=== PATIENT | male | born 1995 | race Caucasian/White ===

== ENCOUNTER 2016-07-25 01:11 | Emergency (ER) | payer OTHER ==
[2016-07-25 01:20] VITALS: O2SAT 95
--- NOTE | 2016-07-25 02:11 | EDPHY ---
H & P Stated Complaint: "My insulin pump stopped working" 2.5 hours ago Time Seen by Provider: 07/25/16 01:40 HPI/ROS: HPI The patient presents with concern that his insulin pump is not working. He got an error message on the pump stating motor malfunction. He called [facility] and they told him that he could get a new pump in 2 days. He was unable to reach his circulation manager in [place], so comes to the emergency room for further care. He checked his glucose level about 2 hours ago and it was 219. He is not having any nausea, vomiting, abdominal pain. He was last on injectable insulin several years ago and took Humalog as well as Lantus, he can recall his doses, though has gained 15-19 lb since then he thinks. REVIEW OF SYSTEMS Constitutional: No fever, no chills. Eyes: No discharge. ENT: No sore throat. Cardiovascular: No chest pain, no palpitations. Respiratory: No cough, no shortness of breath. Gastrointestinal: No abdominal pain, no vomiting. Genitourinary: No hematuria. Musculoskeletal: No back pain. Skin: No rashes. Neurological: No headache. PMHx: Type 1 diabetes Soc Hx: College student PHYSICAL General Appearance: Alert, no distress Eyes: Pupils equal and round no pallor or injection ENT, Mouth: Mucous membranes moist Respiratory: There are no retractions, lungs are clear to auscultation Cardiovascular: Regular rate and rhythm Gastrointestinal: Abdomen is soft and non-tender, no masses, bowel sounds normal Neurological: A&O, moves all extremities Skin: Warm and dry, no rashes Musculoskeletal: Neck is supple non tender Extremities: symmetrical, full range of motion Psychiatric: Patient is oriented X 3, there is no agitation Source: Patient Exam Limitations: No limitations - Personal History Current Tetanus Diphtheria and Acellular Pertussis (TDAP): Yes - Medical/Surgical History Hx Asthma: No Hx Chronic Respiratory Disease: No Hx Diabetes: Yes Hx Cardiac Disease: No Hx Renal Disease: No Hx Cirrhosis: No Hx Alcoholism: No Hx HIV/AIDS: No Hx Splenectomy or Spleen Trauma: No Other PMH: DM I since 10 yo, depression - Social History Smoking Status: Never smoked Constitutional: Initial Vital Signs Temperature (C) 36.8 C 07/25/16 01:19 Heart Rate 92 07/25/16 01:19 Respiratory Rate 16 07/25/16 01:19 Blood Pressure 134/66 H 07/25/16 01:19 O2 Sat (%) 95 07/25/16 01:19 O2 Delivery Mode Room Air Allergies/Adverse Reactions: No Known Allergies Allergy (Unverified 07/25/16 01:18) Home Medications: Medication Instructions Recorded Insulin Glargine,Hum.rec.anlog 100 unit SQ HS #1 ml 07/25/16 [Lantus Solostar] Insulin Lispro [Humalog Kwikpen] 200 unit SQ TID #1 insuln.pen 07/25/16 Insulin Pump Cartridge 07/25/16 Wellbutrin 100mg (*) 07/25/16 Medical Decision Making Differential Diagnosis: This is a 21-year-old male with history of type 1 diabetes who normally uses an insulin pump, who presents with pump malfunction. Glucose checked here and was 210. I have given him his nighttime Lantus dose of 12 units. I will give him prescriptions for Humalog and Lantus pens. In the morning, he will call his circulation manager to go over recommended dosing. He will be discharged from the emergency room. - Data Points Medications Given: Discontinued Medications Insulin Glargine (Lantus Syringe) 12 units SC EDNOW ONE Stop: 07/25/16 02:31 Last Admin: 07/25/16 02:50 Dose: 12 units Departure - Departure Disposition: Home, Routine, Self-Care Clinical Impression: Complication of insulin pump, Hyperglycemia Condition: Good Instructions: Diabetic Hyperglycemia (ED), Insulin Glargine (By injection), Insulin Lispro (By injection) Referrals: NONE *PRIMARY CARE P,. [Primary Care Provider] - As per Instructions Prescriptions: Insulin Lispro [Humalog Kwikpen] 200 unit SQ TID #1 insuln.pen Insulin Glargine,Hum.rec.anlog [Lantus Solostar] 100 unit SQ HS #1 ml
[2016-07-25] MEDS ORDERED: INSULIN GLARGINE 100 UNITS/ML SYRINGE SC ONE (02:30)
[2016-07-25 02:53] VITALS: BP 125/76; PULSE 95; RESP 17; TEMP 98.1
== END 2016-07-25 02:52 | disposition home or self-care (01) ==
DX: T85.614A Breakdown (mechanical) of insulin pump, initial encounter (principal); E10.65 Type 1 diabetes mellitus with hyperglycemia; Y82.8 Other medical devices associated with adverse incidents
CPT/HCPCS: 82947-QW; J1815

== ENCOUNTER 2016-10-18 18:02 | Emergency (ER) | payer OTHER ==
[2016-10-18 18:12] VITALS: BP 111/73; PULSE 90; RESP 16; TEMP 98.1; O2SAT 95
--- NOTE | 2016-10-18 19:03 | UCPHY ---
H & P Patient Type: Established Chief Complaint Nursing Narrative: Pt. states intense pain anal area since this am. states pain with sitting and walking. Denies fever/chills Time Seen by Provider: 10/18/16 18:41 HPI/ROS: Chief complaint: Rectal pain HPI: 21-year-old male presenting with increasing rectal pain today. Patient states that hurts to sit on to walk. When showering this morning he did notice a bump in his rectal area. No fevers or chills. Has had occasional blood on his stools and some pain with passing a bowel movement. No abdominal pain. Does have a history of type 1 diabetes on insulin pump. No fevers or chills. ROS: 10 point Review of Systems is negative except as noted in the HPI. Past medical history: Type 1 diabetes Medications: Humalog insulin Allergies no known drug allergies Physical exam: Gen: Awake, Alert, No Distress HEENT: Nose: no rhinorrhea Eyes: PERRLA, EOMI Mouth: Moist mucosa Abd: Soft, non-tender, no guarding Rectal: He has a palpable hemorrhoid on examination. There are no large perirectal fluid collections or masses suggestive of abscess. There is no fluctuance. Ext: no edema, non-tender Skin: no rash Neuro: CN II-XII intact, Sensation grossly intact, Strength 5/5 in bilateral upper and lower extremities - Medical/Surgical History Hx Asthma: No Hx Chronic Respiratory Disease: No Hx Diabetes: Yes Hx Cardiac Disease: No Hx Renal Disease: No Hx Cirrhosis: No Hx Alcoholism: No Hx HIV/AIDS: No Hx Splenectomy or Spleen Trauma: No Other PMH: DM I since 10 yo, depression. Surg-none - Family History Significant Family History: No pertinent family hx - Social History Smoking Status: Never smoked Constitutional: Initial Vital Signs Temperature (C) 36.7 C 10/18/16 18:07 Heart Rate 90 10/18/16 18:07 Respiratory Rate 16 10/18/16 18:07 Blood Pressure 111/73 10/18/16 18:07 O2 Sat (%) 95 10/18/16 18:07 O2 Delivery Mode Room Air Allergies/Adverse Reactions: No Known Allergies Allergy (Verified 10/18/16 18:06) Home Medications: Medication Instructions Recorded Insulin Glargine,Hum.rec.anlog 100 unit SQ HS #1 ml 07/25/16 [Lantus Solostar] Insulin Lispro [Humalog Kwikpen] 200 unit SQ TID #1 insuln.pen 07/25/16 Insulin Pump Cartridge 07/25/16 Wellbutrin 100mg (*) 07/25/16 Departure - Departure Disposition: Home, Routine, Self-Care Clinical Impression: Hemorrhoid Condition: Good Instructions: Hemorrhoids (ED) Additional Instructions: He may take [id number] hemorrhoid medication per package instructions. Make sure to drink plenty of water and stay well-hydrated. Soaks in warm water daily will help them to heal. Follow up your primary doctor in [facility] in 4-5 days if symptoms are not improving. Referrals: NONE *PRIMARY CARE P,. [Primary Care Provider] - As per Instructions [facility] [Outside] - As per Instructions - PQRS PQRS Measurement: NA
== END 2016-10-18 19:09 | disposition home or self-care (01) ==
LOC: CED 18:02
DX: K64.9 Unspecified hemorrhoids (principal); E10.9 Type 1 diabetes mellitus without complications
CPT/HCPCS: 99214-PO; G0463-PO

== ENCOUNTER 2017-02-06 13:23 | Emergency (ER) | payer OTHER ==
--- NOTE | 2017-02-06 13:35 | EDPHY ---
H & P Stated Complaint: R flank pain episodes x 10 hours, diabetic ins pump, denies dysuria Time Seen by Provider: 02/06/17 13:34 - Personal History Current Tetanus/Diphtheria Vaccine: Unsure Current Tetanus Diphtheria and Acellular Pertussis (TDAP): Unsure - Medical/Surgical History Hx Asthma: No Hx Chronic Respiratory Disease: No Hx Diabetes: Yes Hx Cardiac Disease: No Hx Renal Disease: No Hx Cirrhosis: No Hx Alcoholism: No Hx HIV/AIDS: No Hx Splenectomy or Spleen Trauma: No Other PMH: DM I since age 10y, depression - Social History Smoking Status: Never smoked Constitutional: Initial Vital Signs Temperature (C) 36.6 C 02/06/17 13:26 Heart Rate 91 02/06/17 13:26 Respiratory Rate 16 02/06/17 13:26 Blood Pressure 104/77 02/06/17 13:26 O2 Sat (%) 98 02/06/17 13:26 O2 Delivery Mode Room Air Allergies/Adverse Reactions: No Known Allergies Allergy (Verified 10/18/16 18:06) Home Medications: Medication Instructions Recorded Insulin Glargine,Hum.rec.anlog 100 unit SQ HS #1 ml 07/25/16 [Lantus Solostar] Insulin Lispro [Humalog Kwikpen] 200 unit SQ TID #1 insuln.pen 07/25/16 Insulin Pump Cartridge 07/25/16 Wellbutrin 100mg (*) 07/25/16 Medical Decision Making - Diagnostics Imaging Results: Imaging Impressions Abdomen/Pelvis Ultrasound 02/06/17 13:44 Impression: 1. Normal kidneys without hydronephrosis. 2. No mass. 3. Patient was not able to void for the study today. Findings discussed with Dominic Soriano MD at 1500 hours, 02/06/2017. Final report concurs with initial preliminary interpretation. Abdomen/Pelvis CT 02/06/17 14:50 Impression: 1. No nephrolithiasis or hydronephrosis. 2. Mild constipation. 3. Appendicular microlithiasis without evidence of appendicitis or inflammation. Attention: This CT examination is specifically designed to evaluate patients who are clinically suspected of having acute obstructive uropathy. This examination does not use radiographic contrast, and as such, provides only a limited evaluation of the abdomen, pelvis and retroperitoneum. If there is further clinical suspicion for pathological conditions other than obstructive uropathy, a complete CT evaluation of the abdomen and pelvis utilizing intravenous, oral, and rectal contrast should be considered. Findings discussed with Emergency Department physician, Dominic Soriano MD, at 1545 hours, 02/06/2017. Final report concurs with initial preliminary interpretation. Imaging: Discussed imaging studies w/ bingo caller Radiologist, I viewed and interpreted images myself ED Course/Re-evaluation: CHIEF COMPLAINT: Right lower back pain. HISTORY OF PRESENT ILLNESS: The patient is a 21 y/o male with a history of diabetes who complains of waxing and waning right lower flank pain for the past 10 hours. He states the pain is radiating towards his lower right abdomen and groin. Denies history of kidney stone, fluctuating sugars. Denies fever, vomiting, dyspnea, dysuria, testicular pain. REVIEW OF SYSTEMS: A 10 point review of systems was performed and is negative with the exception of the elements mentioned in the history of present illness. PHYSICAL EXAM: HR, BP, O2 Sat, RR. Temp noted General Appearance: Alert, well hydrated, appropriate, and non-toxic appearing. Head: Atraumatic without scalp tenderness or obvious injury Eyes: Pupils equal, round, reactive to light and accommodation, EOMI, no trauma , no injection. Nose: Atraumatic, no rhinorrhea, clear. Throat: Mucus membranes moist. Neck: Supple. Respiratory: No retractions, no distress, no wheezes, and no accessory muscle use. Lungs are clear to auscultation bilaterally. Cardiovascular: Regular rate and rhythm, no murmurs, rubs, or gallops. Good capillary refill all extremities. Gastrointestinal: Abdomen is soft, nontender, non-distended, no masses, no rebound, no guarding, no peritoneal signs. Musculoskeletal: Right CVA tenderness. Normal active ROM of all extremities, atraumatic. Neurological: Alert, appropriate, and interactive. Non-focal neuro. Skin: No rashes, good turgor, no nodules on palpation. Past medical history: Type I diabetes since 10 Past surgical history: Denies Family history: No family history of kidney stones. Social history: Lives in [facility] student DIAGNOSTICS/PROCEDURES/CRITICAL CARE TIME: Kidney US: Negative Abdominal/Pelvis CT: No evidence of kidney stone, appendicolith present. DIFFERENTIAL DIAGNOSIS: The differential diagnosis for the patient's abdominal pain included but was not limited to kidney stone, appendicitis, cholecystitis, hernias, testicular torsion, gastritis, and urinary tract infection. MEDICAL DECISION MAKING: The patient is a 21 y/o male with a history of diabetes who presents with a 10 hour history of waxing and waning right CVA tenderness. His abdomen is benign and he is afebrile. His presentation is consistent with a kidney stone. Plan for kidney US, IV, labs, and symptomatic management. 30mg IV Ketorolac, 1mg IV Dilaudid, 4mg IV Zofran, and 1L NS administered. BGL is normal, which decreases my suspicion for infectious process. Informal US read is negative, plan for abdominal CT to evaluate for kidney stone. 1545: Spoke with Dr. Lu, radiologist, no hydroureter, hydronephrosis, there are numerous micro appendicolith. Labs pending. 1714: Patient has been unable to provide a urine sample, although his CT shows a distended bladder. Bladder scan shows almost 600cc of urine. Patient has been straining to urinate for over 20 minutes without producing a sample. 1944: Reassessed patient. I recommend placing a catheter to empty out his bladder. He is comfortable with this plan. 2014: He has voided 400cc without a catheter, he will be discharged home with referral to surgeon for appendicolith and urologist for urinary retention. Return precautions provided, he is comfortable with this plan. - Data Points Laboratory Results: Laboratory Results 02/06/17 14:11 02/06/17 14:11 02/06/17 02/06/17 02/06/17 19:20 14:11 14:11 WBC 8.91 10^3/uL 10^3/uL (3.80-9.50) RBC 5.62 10^6/uL 10^6/uL (4.40-6.38) Hgb 17.1 g/dL g/dL (13.7-17.5) Hct 48.1 % % (40.0-51.0) MCV 85.6 fL fL (81.5-99.8) MCH 30.4 pg pg (27.9-34.1) MCHC 35.6 g/dL g/dL (32.4-36.7) RDW 12.6 % % (11.5-15.2) Plt Count 335 10^3/uL 10^3/uL (150-400) MPV 9.9 fL fL (8.7-11.7) Neut % (Auto) 51.6 % % (39.3-74.2) Lymph % (Auto) 33.0 % % (15.0-45.0) [place] % (Auto) 8.3 % % (4.5-13.0) Eos % (Auto) 6.1 % % (0.6-7.6) Baso % (Auto) 0.8 % % (0.3-1.7) Nucleat RBC Rel Count 0.0 % % (0.0-0.2) Absolute Neuts (auto) 4.60 10^3/uL 10^3/uL (1.70-6.50) Absolute Lymphs (auto) 2.94 10^3/uL 10^3/uL (1.00-3.00) Absolute Monos (auto) 0.74 10^3/uL 10^3/uL (0.30-0.80) Absolute Eos (auto) 0.54 10^3/uL H 10^3/uL (0.03-0.40) Absolute Basos (auto) 0.07 10^3/uL 10^3/uL (0.02-0.10) Absolute Nucleated RBC 0.00 10^3/uL 10^3/uL (0-0.01) Immature Gran % 0.2 % % (0.0-1.1) Immature Gran # 0.02 10^3/uL 10^3/uL (0.00-0.10) Sodium 139 mEq/L mEq/L (134-144) Potassium 4.6 mEq/L mEq/L (3.5-5.2) Chloride 101 mEq/L mEq/L (97-110) Carbon Dioxide 22 mEq/l mEq/l (22-31) Anion Gap 16 mEq/L mEq/L (8-16) BUN 14 mg/dL mg/dL (7-23) Creatinine 0.9 mg/dL mg/dL (0.7-1.3) Estimated GFR > 60 Glucose 123 mg/dL H mg/dL (70-100) Calcium 10.2 mg/dL mg/dL (8.5-10.4) Total Bilirubin 0.9 mg/dL mg/dL (0.1-1.4) AST 28 IU/L IU/L (17-59) ALT 30 IU/L IU/L (21-72) Alkaline Phosphatase 85 IU/L IU/L (38-126) Total Protein 8.3 g/dL H g/dL (6.3-8.2) Albumin 5.3 g/dL H g/dL (3.5-5.0) Urine Color YELLOW Urine Appearance CLEAR Urine pH 6.0 (5.0-7.5) Ur Specific [place] 1.013 (1.002-1.030) Urine Protein NEGATIVE (NEGATIVE) Urine Ketones NEGATIVE (NEGATIVE) Urine Blood NEGATIVE (NEGATIVE) Urine Nitrate NEGATIVE (NEGATIVE) Urine Bilirubin NEGATIVE (NEGATIVE) Urine Urobilinogen NEGATIVE EU EU (0.2-1.0) Ur Leukocyte Esterase NEGATIVE (NEGATIVE) Urine RBC 1-3 /hpf /hpf (0-3) Urine WBC 1-3 /hpf /hpf (0-3) Ur Epithelial Cells NONE SEEN /lpf /lpf (NONE-1+) Urine Mucus 2+ /lpf H /lpf (NONE-1+) Urine Glucose NEGATIVE (NEGATIVE) Medications Given: Discontinued Medications Hydromorphone HCl (Dilaudid) 1 mg IVP EDNOW ONE Stop: 02/06/17 13:44 Last Admin: 02/06/17 14:04 Dose: 1 mg Sodium Chloride (Ns) 1,000 mls @ 0 mls/hr IV EDNOW ONE; Wide Open PRN Reason: Protocol Stop: 02/06/17 13:44 Last Admin: 02/06/17 14:03 Dose: 1,000 mls Ketorolac Tromethamine (Toradol) 30 mg IVP EDNOW ONE Stop: 02/06/17 13:44 Last Admin: 02/06/17 14:03 Dose: 30 mg Ondansetron HCl (Zofran) 4 mg IVP EDNOW ONE Stop: 02/06/17 13:44 Last Admin: 02/06/17 14:04 Dose: 4 mg Departure - Departure Disposition: Home, Routine, Self-Care Clinical Impression: Urinary retention, Acute right flank pain Condition: Good Instructions: Urinary Retention in Men (ED), Flank Pain (ED) Additional Instructions: 1. Follow up with Dr. Llanos, urologist, for urinary retention. 2. Follow up with Dr. Rodgers, surgeon, regarding appendicolithiases on your abdominal CT. 3. Return to the ED for severe abdominal pain, vomiting, fever, inability to void bladder, or other worsening of condition. Referrals: HERMANN ALMARAZ [Other] - As per Instructions Jimmie Rodgers MD [Medical Doctor] - As per Instructions Hansa Llanos MD [Medical Doctor] - As per Instructions Report Scribed for: Dominic Soriano Report Scribed by: Magda Graves Date of Report: 02/06/17 Time of Report: 13:35
[2017-02-06] MEDS ORDERED: NS 1,000 ML IV ONE (13:43)
[2017-02-06] MEDS ORDERED: ONDANSETRON 4 MG/2 ML VIAL IVP ONE (13:43)
[2017-02-06] MEDS ORDERED: HYDROmorphONE/DILAUDID 1 MG/ML SYR IVP ONE (13:43)
[2017-02-06] MEDS ORDERED: KETOROLAC 30 MG/1 ML SDV IVP ONE (13:43)
[2017-02-06 14:35] LABS: ALANINE AMINOTRANSFERASE 30 IU/L (21-72); ALBUMIN 5.3 g/dL (3.5-5.0); ALKALINE PHOSPHATASE 85 IU/L (38-126); ANION GAP 16 mEq/L (8-16); ASPARTATE AMINOTRANSFERASE 28 IU/L (17-59); BILIRUBIN,TOTAL 0.9 mg/dL (0.1-1.4); CALCIUM 10.2 mg/dL (8.5-10.4); CARBON DIOXIDE 22 mEq/l (22-31); CHLORIDE 101 mEq/L (97-110); CREATININE 0.9 mg/dL (0.7-1.3); GLOMERULAR FILTRATION RATE > 60; GLUCOSE 123 mg/dL (70-100); POTASSIUM 4.6 mEq/L (3.5-5.2); SODIUM 139 mEq/L (134-144); TOTAL PROTEIN 8.3 g/dL (6.3-8.2)
[2017-02-06 15:47] LABS: % IMMATURE GRANULYOCYTES 0.2 % (0.0-1.1); ABSOLUTE IMMATURE GRANULOCYTES 0.02 10^3/uL (0.00-0.10); ADD DIFF? NO; ADD MORPH? NO; ADD SCAN? NO; ATYPICAL LYMPHOCYTE FLAG 0 (0-99); FRAGMENT RBC FLAG 0 (0-99); HEMATOCRIT 48.1 % (40.0-51.0); HEMOGLOBIN 17.1 g/dL (13.7-17.5); LEFT SHIFT FLG 0 (0-99); LIPEMIA HEMOLYSIS FLAG 90 (0-99); MEAN CELL HEMOGLOBIN 30.4 pg (27.9-34.1); MEAN CELL HEMOGLOBIN CONCENTR. 35.6 g/dL (32.4-36.7); MEAN CELL VOLUME 85.6 fL (81.5-99.8); MEAN PLATELET VOLUME 9.9 fL (8.7-11.7); PLATELET CLUMPS FLAG 0 (0-99); PLATELET COUNT 335 10^3/uL (150-400); RED BLOOD CELL COUNT 5.62 10^6/uL (4.40-6.38); RED CELL DISTRIBUTION WIDTH 12.6 % (11.5-15.2)
[2017-02-06 17:50] VITALS: RESP 18
[2017-02-06 19:31] LABS: COLOR YELLOW; LEUKOCYTE ESTERASE,URINE NEGATIVE (NEGATIVE); NITRITE,URINE NEGATIVE (NEGATIVE)
[2017-02-06 19:34] LABS: MUCUS 2+ /lpf (NONE-1+)
[2017-02-06] MEDS ORDERED: ONDANSETRON 4MG PREPACK#2 BTL TAKEHOME ONE ×2 (20:25→20:35)
[2017-02-06] MEDS ORDERED: ONDANSETRON DISINTEGRATING 4 MG TAB ONE (20:34)
[2017-02-06] MEDS ORDERED: ONDANSETRON DISINTEGRATING 4 MG TAB PO ONE (20:35)
[2017-02-06 20:48] VITALS: BP 122/68; PULSE 73; TEMP 98.1; O2SAT 96
== END 2017-02-06 20:48 | disposition home or self-care (01) ==
DX: R33.9 Retention of urine, unspecified (principal); E86.9 Volume depletion, unspecified; E10.9 Type 1 diabetes mellitus without complications; Z79.4 Long term (current) use of insulin
CPT/HCPCS: 96374; J1170; J1885; J2405

== ENCOUNTER 2018-09-02 20:36 | Observation (INO) | payer MEDICAID, OTHER ==
[2018-09-02] MEDS ORDERED: LIDOCAINE 2% JELLY 20 ML (UROJECT) ONE (22:08)
[2018-09-02] MEDS ORDERED: NS 1,000 ML IV ONE (22:15)
[2018-09-02] MEDS ORDERED: PANTOPRAZOLE SODIUM 40 MG VIAL IVP ONE (22:38)
[2018-09-02] MEDS ORDERED: ACETAMINOPHEN 325 MG TAB PO PRN (22:39)
[2018-09-02] MEDS ORDERED: ONDANSETRON DISINTEGRATING 4 MG TAB PO PRN (22:39)
[2018-09-02] MEDS ORDERED: ONDANSETRON 4 MG/2 ML VIAL IVP PRN (22:39)
[2018-09-02] MEDS ORDERED: D50W 25 GM/50 ML SYR IVP PRN ×2 (22:40)
[2018-09-02 22:45] LABS: PLATELET COUNT 323 10^3/uL (150-400)
[2018-09-02] MEDS ORDERED: NS 1,000 ML IV SCH (22:45)
[2018-09-02] MEDS ORDERED: INSULIN PUMP, PATIENT OWN 1 EA MISC SCH (22:45)
--- NOTE | 2018-09-02 22:54 | EDPHY ---
H & P Stated Complaint: rectal pain and bleeding x2 hours - Personal History Current Tetanus/Diphtheria Vaccine: Yes - Medical/Surgical History Hx Asthma: No Hx Chronic Respiratory Disease: No Hx Diabetes: Yes Hx Cardiac Disease: No Hx Renal Disease: No Hx Cirrhosis: No Hx Alcoholism: No Hx HIV/AIDS: No Hx Splenectomy or Spleen Trauma: No Other PMH: DM I since age 10y, depression - Social History Smoking Status: Never smoked Time Seen by Provider: 09/02/18 21:44 HPI/ROS: Chief complaint: Bloody stools History of present illness: This is a 23-year-old male who presents to the emergency department for sudden onset of bloody stools. He was in his usual state of health earlier this evening. He had onset of abdominal pain, rectal pain and black stools. Abdominal pain has been waxing and waning. However rectal pain and bloody stools persist. He denies precipitating factors. He denies alleviating factors. He has never had similar symptoms in the past. No associated systemic symptoms such as lightheadedness, dizziness or abnormal bleeding elsewhere. Review of systems: A 10 point review of systems was obtained and other than described above was negative. (Hakan Call) - Physical Exam Exam: General Appearance: Alert, no distress. Eyes: Pupils equal and round no pallor or injection. ENT, Mouth: Mucous membranes moist. Respiratory: There are no retractions, lungs are clear to auscultation. Cardiovascular: Regular rate and rhythm. Gastrointestinal: Abdomen is soft and non tender, no masses, bowel sounds normal. Rectal reveals melenic stools. Neurological: Alert. Strength and sensation intact and symmetrical. Skin: Warm and dry, no rashes. Musculoskeletal: Neck is supple non tender. Extremities are symmetrical, full range of motion. Psychiatric: Patient is oriented X 3, there is no agitation. (Hakan Call) Constitutional: Initial Vital Signs Temperature (C) 36.7 C 09/02/18 20:53 Heart Rate 87 09/02/18 20:53 Respiratory Rate 16 09/02/18 20:53 Blood Pressure 133/77 H 09/02/18 20:53 O2 Sat (%) 97 09/02/18 20:53 O2 Delivery Mode Room Air Allergies/Adverse Reactions: No Known Allergies Allergy (Verified 09/02/18 20:55) Home Medications: Medication Instructions Recorded Insulin Pump Cartridge 07/25/16 Medical Decision Making Procedures: Procedure: Anoscope Verbal consent was obtained from the patient. A Uro jet was used to alleviate discomfort. The anoscope was performed. No internal lesions or active bleeding was obviously noted. Patient did experience discomfort with it limiting the exam. (Hakan Call) ED Course/Re-evaluation: Patient is discussed with my secondary supervising physician Dr. Ivan Jeffrey. Patient presents for sudden onset of abdominal pain, rectal pain and black stools. Ultimately I am concerned for GI bleed. This time he is hemodynamically stable. He is IV hydrated and started on a PPI. He has mid to the hospitalist for further evaluation and care. I have consulted with on-call GI, Dr. Johns. He will see patient in the morning. Plan has been discussed with the patient who voiced understanding and agreement with it. (Hakan Call) Differential Diagnosis: Included but not limited to upper GI bleed, lower GI bleed, coagulopathy (Hakan Call) Other Provider: PHYSICIAN DOCUMENTATION: The patient was evaluated and managed by the Physician Tie Bucker. My co- signature indicates that I have reviewed this chart and I agree with the findings and plan of care as documented. I am the secondary supervising physician. (Madhu Jeffrey) - Data Points Laboratory Results: Laboratory Results 09/02/18 22:23 09/02/18 22:23 09/02/18 09/02/18 09/02/18 22:23 22:23 22:23 WBC RBC Hgb Hct MCV MCH MCHC RDW Plt Count MPV Neut % (Auto) Lymph % (Auto) [place] % (Auto) Eos % (Auto) Baso % (Auto) Nucleat RBC Rel Count Absolute Neuts (auto) Absolute Lymphs (auto) Absolute Monos (auto) Absolute Eos (auto) Absolute Basos (auto) Absolute Nucleated RBC Immature Gran % Immature Gran # PT 13.4 SEC SEC (12.0-15.0) INR 1.06 (0.83-1.16) APTT 29.2 SEC SEC (23.0-38.0) Sodium 140 mEq/L mEq/L (135-145) Potassium 4.0 mEq/L mEq/L (3.5-5.2) Chloride 108 mEq/L mEq/L (97-110) Carbon Dioxide 20 mEq/l L mEq/l (22-31) Anion Gap 12 mEq/L mEq/L (6-14) BUN 19 mg/dL mg/dL (7-23) Creatinine 0.8 mg/dL mg/dL (0.7-1.3) Estimated GFR > 60 Glucose 116 mg/dL H mg/dL (70-100) Calcium 9.4 mg/dL mg/dL (8.5-10.4) Patient ABO/Rh O POSITIVE Antibody Screen NEGATIVE 09/02/18 22:23 WBC 9.02 10^3/uL 10^3/uL (3.80-9.50) RBC 5.34 10^6/uL 10^6/uL (4.40-6.38) Hgb 15.8 g/dL g/dL (13.7-17.5) Hct 45.8 % % (40.0-51.0) MCV 85.8 fL fL (81.5-99.8) MCH 29.6 pg pg (27.9-34.1) MCHC 34.5 g/dL g/dL (32.4-36.7) RDW 13.4 % % (11.5-15.2) Plt Count 323 10^3/uL 10^3/uL (150-400) MPV 9.3 fL fL (8.7-11.7) Neut % (Auto) 55.1 % % (39.3-74.2) Lymph % (Auto) 33.5 % % (15.0-45.0) [place] % (Auto) 6.9 % % (4.5-13.0) Eos % (Auto) 3.7 % % (0.6-7.6) Baso % (Auto) 0.6 % % (0.3-1.7) Nucleat RBC Rel Count 0.0 % % (0.0-0.2) Absolute Neuts (auto) 4.98 10^3/uL 10^3/uL (1.70-6.50) Absolute Lymphs (auto) 3.02 10^3/uL H 10^3/uL (1.00-3.00) Absolute Monos (auto) 0.62 10^3/uL 10^3/uL (0.30-0.80) Absolute Eos (auto) 0.33 10^3/uL 10^3/uL (0.03-0.40) Absolute Basos (auto) 0.05 10^3/uL 10^3/uL (0.02-0.10) Absolute Nucleated RBC 0.00 10^3/uL 10^3/uL (0-0.01) Immature Gran % 0.2 % % (0.0-1.1) Immature Gran # 0.02 10^3/uL 10^3/uL (0.00-0.10) PT INR APTT Sodium Potassium Chloride Carbon Dioxide Anion Gap BUN Creatinine Estimated GFR Glucose Calcium Patient ABO/Rh Antibody Screen Medications Given: Discontinued Medications Sodium Chloride (Ns) 1,000 mls @ 0 mls/hr IV EDNOW ONE; Wide Open PRN Reason: Protocol Stop: 09/02/18 22:16 Last Admin: 09/02/18 22:15 Dose: 1,000 mls Pantoprazole Sodium (Protonix) 40 mg IVP EDNOW ONE Stop: 09/02/18 22:39 Last Admin: 09/02/18 23:13 Dose: 40 mg Departure - Departure Disposition: [facility] In[facility] Acute Clinical Impression: GI bleed Qualifiers: GI bleed type/associated pathology: unspecified gastrointestinal hemorrhage type Qualified Code(s): K92.2 - Gastrointestinal hemorrhage, unspecified Condition: Fair
[2018-09-02 22:55] LABS: INR 1.06 (0.83-1.16); PROTIME(PATIENT) 13.4 SEC (12.0-15.0)
--- NOTE | 2018-09-03 00:02 | PDGENHP ---
History and Physical - Chief Complaint Melena, BRBPR - History of Present Illness 23 yo M w/ T1DM presents with rectal bleeding. The patient tells me he had rectal pain for one day and then he noticed rectal bleeding today. He tells me some of this was ghanshyam blood but he also had a good amount of dark, tarry stool. In the ED an anoscope was performed, which was relatively unremarkable, but did demonstrate significant melena. The patient has no prior history of GI bleed. He has no personal or family hx of IBD. His father did have esophageal cancer. He denies symptoms of recent illness. He also denies any issues with chronic diarrhea. His vital signs and H/H are reassuring. He is being admitted for further evaluation. Case discussed with ED CONY Call, records reviewed and summarized above. History Information - Allergies/Home Medication List Allergies/Adverse Reactions: No Known Allergies Allergy (Verified 09/02/18 20:55) Home Medications: Insulin Pump Cartridge 07/25/16 [Last Taken Unknown] I have personally reviewed and updated: family history, medical history - Past Medical History diabetes type 1 - Surgical History Additional surgical history: Oral surgery - Family History Positive for: cancer (Father had esophageal cancer) - Social History Smoking Status: Never smoked Review of Systems Review of Systems: ROS: 10pt was reviewed & negative except for what was stated in HPI & below Physical Exam Physical Exam: Temp Pulse Resp BP Pulse Ox 36.6 C 84 14 131/71 H 95 09/02/18 23:39 09/02/18 23:35 09/02/18 23:35 09/02/18 23:35 09/02/18 23:35 Constitutional: appears nourished, uncomfortable Eyes: PERRL, EOMI Ears, Nose, Mouth, Throat: moist mucous membranes, no oral mucosal ulcers Cardiovascular: regular rate and rhythym, no murmur, rub, or gallop Respiratory: no respiratory distress, no rales or rhonchi Gastrointestinal: normoactive bowel sounds, soft, non-tender abdomen Skin: warm, normal color Musculoskeletal: full muscle strength, no muscle tenderness Neurologic: AAOx3, CN II-XII Intact Psychiatric: interacting appropriately, not anxious Lab Data & Imaging Review 09/02/18 22:23 09/02/18 22:23 WBC 9.02 10^3/uL (3.80-9.50) 09/02/18 22:23 RBC 5.34 10^6/uL (4.40-6.38) 09/02/18 22:23 Hgb 15.8 g/dL (13.7-17.5) 09/02/18 22:23 Hct 45.8 % (40.0-51.0) 09/02/18 22:23 MCV 85.8 fL (81.5-99.8) 09/02/18 22:23 MCH 29.6 pg (27.9-34.1) 09/02/18 22: MCHC 34.5 g/dL (32.4-36.7) 09/02/18 22:23 RDW 13.4 % (11.5-15.2) 09/02/18 22:23 Plt Count 323 10^3/uL (150-400) 09/02/18 22:23 MPV 9.3 fL (8.7-11.7) 09/02/18 22:23 Neut % (Auto) 55.1 % (39.3-74.2) 09/02/18 22:23 Lymph % (Auto) 33.5 % (15.0-45.0) 09/02/18 22:23 [place] % (Auto) 6.9 % (4.5-13.0) 09/02/18 22:23 Eos % (Auto) 3.7 % (0.6-7.6) 09/02/18:23 Baso % (Auto) 0.6 % (0.3-1.7) 09/02/18 22: Nucleat RBC Rel Count 0.0 % (0.0-0.2) 09/02/18 22:23 Absolute Neuts (auto) 4.98 10^3/uL (1.70-6.50) 09/02/18 22:23 Absolute Lymphs (auto) 3.02 10^3/uL (1.00-3.00) H 09/02/18 22:23 Absolute Monos (auto) 0.62 10^3/uL (0.30-0.80) 09/02/18 22:23 Absolute Eos (auto) 0.33 10^3/uL (0.03-0.40) 09/02/18 22:23 Absolute Basos (auto) 0.05 10^3/uL (0.02-0.10) 09/02/18 22:23 Absolute Nucleated RBC 0.00 10^3/uL (0-0.01) 09/02/18 22:23 Immature Gran % 0.2 % (0.0-1.1) 09/02/18 22:23 Immature Gran # 0.02 10^3/uL (0.00-0.10) 09/02/18 22:23 PT 13.4 SEC (12.0-15.0) 09/02/18 22:23 INR 1.06 (0.83-1.16) 09/02/18 22:23 APTT 29.2 SEC (23.0-38.0) 09/02/18 22:23 Sodium 140 mEq/L (135-145) 09/02/18 22:23 Potassium 4.0 mEq/L (3.5-5.2) 09/02/18 22:23 Chloride 108 mEq/L (97-110) 09/02/18 22:23 Carbon Dioxide 20 mEq/l (22-31) L 09/02/18 22:23 Anion Gap 12 mEq/L (6-14) 09/02/18 22:23 BUN 19 mg/dL (7-23) 09/02/18 22:23 Creatinine 0.8 mg/dL (0.7-1.3) 09/02/18 22:23 Estimated GFR > 60 09/02/18 22:23 Glucose 116 mg/dL (70-100) H 09/02/18 22:23 Calcium 9.4 mg/dL (8.5-10.4) 09/02/18 22:23 Patient ABO/Rh O POSITIVE 09/02/18 22:23 Antibody Screen NEGATIVE 09/02/18 22:23 Assessment & Plan Assessment: 23 yo M w/ T1DM presents with rectal bleeding. Plan: 1. Rectal bleeding - Unclear source at the moment; he does have possible melena so UGIB is a possibility. He is hemodynamically stable with normal H/H. He has no prior history of GI bleed, IBD, or other obvious etiology. - Admit for observation - Monitor H/H - GI consulted, will see in the morning; appreciate assistance - Will maintain NPO - PPI IV BID, mIVF 2. T1DM - He manages this with insulin pump. - Continue patient's own insulin pump - Monitor BG ACHS; D50 IV PRN for hypoglycemia Diet - NPO Code - Full Ppx - Low risk, ambulate TID Dispo - Admit under observation status
[2018-09-03 06:01] LABS: PLATELET COUNT 273 10^3/uL (150-400)
[2018-09-03] MEDS ORDERED: LR 1,000 ML IV ONE (08:18)
--- NOTE | 2018-09-03 08:33 | PDANEPAE ---
ANE History of Present Illness GI bleeding ANE Past Medical History - Cardiovascular History Hx Hypertension: No Hx Arrhythmias: No Hx Chest Pain: No Hx Coronary Artery / Peripheral Vascular Disease: No Hx CHF / Valvular Disease: No Hx Palpitations: No - Pulmonary History Hx COPD: No Hx Asthma/Reactive Airway Disease: No Hx Recent Upper Respiratory Infection: No Hx Oxygen in Use at Home: No Hx Sleep Apnea: No Sleep Apnea Screening Result - Last Documented: Negative - Endocrine History Hx Diabetes: Yes Hypothyroid: No Hyperthyroid: No Obesity: no Endocrine History Comment: DM I - GI History Hx Gastrointestinal Disorders: Yes Gastrointestinal History Comment: GI bleeding - Chronic Pain History Chronic Pain: No ANE Review of Systems Review of systems is: negative Review of Systems: - Exercise capacity METS (RN): 4 METS ANE Patient History - Allergies Allergies/Adverse Reactions: No Known Allergies Allergy (Verified 09/02/18 20:55) - Home Medications Home medications: home medication list seen and reviewed Home Medications: Insulin Pump Cartridge 07/25/16 [Last Taken Unknown] - NPO status NPO Status: no food or drink >8 hours NPO Since - Liquids (Date): 09/02/18 NPO Since - Liquids (Time): 00:00 NPO Since - Solids (Date): 09/02/18 NPO Since - Solids (Time): 00:00 - Anes Hx Anes Hx: no prior problems - Smoking Hx Smoking Status: Never smoked Marijuana use: No - Alcohol Use Alcohol Use: Rarely - Family Anes Hx Family Anes Hx: none ANE Labs/Vital Signs - Labs Result Diagrams: 09/03/18 04:24 09/03/18 04:24 - Vital Signs Blood Pressure: 111/71 Heart Rate: 73 Respiratory Rate: 16 O2 Sat (%): 96 Height: 172.72 cm Weight: 58.9 kg ANE Physical Exam - Airway Neck exam: FROM Mallampati Score: Class 2 Mouth exam: normal dental/mouth exam - Pulmonary Pulmonary: no respiratory distress, clear to auscultation - Cardiovascular Cardiovascular: regular rate and rhythym, no murmur, rub, or gallop - ASA Status ASA Status: II ANE Anesthesia Plan Anesthesia Plan: GA with mask Total IV Anesthesia: Yes
[2018-09-03] MEDS ORDERED: PROPOFOL/EMULSION 500 MG/50 ML BOTTLE IV ONE (08:41)
[2018-09-03] MEDS ORDERED: LIDOCAINE 2% 5 ML SDV ONE (08:41)
[2018-09-03] MEDS ORDERED: PANTOPRAZOLE SODIUM 40 MG VIAL IVP SCH (09:00)
[2018-09-03] MEDS ORDERED: NALOXONE HCL 0.4 MG/ML INJ IVP PRN (09:12)
--- NOTE | 2018-09-03 09:12 | POSTANESTH ---
Post Anesthetic Evaluation Cardiovascular Status: Normal, Stable Respiratory Status: Normal, Stable Level of Consciousness/Mental Status: Can Participate in Eval Pain Control: Adequate, Prn Tx Ordered Nausea/Vomiting Control: Adequate, Prn Tx Ordered Complications Possibly Related to Anesthesia: None Noted
--- NOTE | 2018-09-03 09:27 | GIREPORT ---
Former[facility] Surgical Services - Endoscopy Department Patient Name: Danny Rendon Procedure Date: 09/03/2018 8:45 AM Patient Type: Inpatient Attending MD/ ER Physician: Maynor Johns MD Procedure: Upper GI endoscopy Indications: Melena Patient Profile: 23 year old male presents for evaluation of melenotic stools. Providers: Maynor Johns MD Medicines: Monitored Anesthesia Care Complications: No immediate complications. Estimated blood loss: None. Description of Procedure: After obtaining informed consent, the endoscope was passed under direct vision. Throughout the procedure, the patient's blood pressure, pulse, and oxygen saturations were monitored continuously. The Endoscope was intro duced through the mouth, and advanced to the second part of duodenum. The [facility] er GI endoscopy was accomplished without difficulty. The patient tolerated th e procedure well. Findings: The esophagus was ringed with linear furrows consistent with eosinophil ic esophagitis. At the GE junction a small tear was noted on withdrawal wh ich was oozing blood. It was suspected to be from scope trauma and a clip w as placed with complete cessation of bleeding. Due to the bleeding, no bio psies were taken of the stomach. The entire examined stomach was normal except for a hiatal hernia. The examined duodenum was normal. Estimated Blood Loss: Estimated blood loss: none. Post Op Diagnosis: - Suspect eosinophlic esophagitis. - Hiatal hernia - Normal examined duodenum. - No specimens collected. - Trauma at GE junction with oozing s/p clip with complete cessation of bleeding. Recommendation: - Perform a flexible sigmoidoscopy today. - Thank you for allowing me to participate in the care of your patient. Attending Participation: I personally performed the entire procedure. Maynor Johns MD Maynor Johns MD 09/03/2018 9:27:01 AM This report has been signed electronicallyMaynor Johns MD Number of Addenda: 0 Note Initiated On: 09/03/2018 8:45 AM [email or web address]
--- NOTE | 2018-09-03 09:51 | GIREPORT ---
[facility] Surgical Services - Endoscopy Department Patient Name: Danny Rendon Procedure Date: 09/03/2018 9:10 AM Patient Type: Inpatient Attending MD/ ER Physician: Maynor Johns MD Procedure: Flexible Sigmoidoscopy Indications: Rectal hemorrhage, Rectal pain Patient Profile: 23 year old male presents for evaluation of rectal hemorrhage/pain. Providers: Maynor Johns MD Medicines: Monitored Anesthesia Care Complications: No immediate complications. Estimated blood loss: None. Description of Procedure: After obtaining informed consent, the endoscope was passed under direct vision. Throughout the procedure, the patient's blood pressure, pulse, and oxygen saturations were monitored continuously. The Colonoscope was introduced through the anus and advanced to the sigmoid colon. The flex ible sigmoidoscopy was accomplished without difficulty. The patient tolerate d the procedure well. The quality of the bowel preparation was poor. Findings: The perianal exam findings include external hemorrhoids and non-thrombo sed internal hemorrhoids. One of the hemorrhoids was enlarged and suspected to be thrombosed. A large amount of stool was found in the rectum and in the sigmoid colo n, interfering with visualization. Estimated Blood Loss: Estimated blood loss: none. Post Op Diagnosis: - Preparation of the colon was poor. - A possible small thrombosed external hemorrhoid and non-thrombosed internal hemorrhoids found on perianal exam. - Stool in the rectum and in the sigmoid colon which limited all views - No specimens collected. - No blood seen. Recommendation: - [facility] care. - Advance diet as tolerated. - Continue present medications. - Will need repeat EGD with biopsies and full colonoscopy as outpatient - Supportive care . - Conservative care of hemorrhods - Analgesics - Stay off his feet. - Consider surgical evaluation if pain doesnt improve. - Thank you for allowing me to participate in the care of your patient. Attending Participation: I personally performed the entire procedure. Maynor Johns MD Maynor Johns MD 09/03/2018 9:51:21 AM This report has been signed electronicallyMaynor Johns MD Number of Addenda: 0 Note Initiated On: 09/03/2018 9:10 AM [email or web address]}
[2018-09-03] MEDS ORDERED: HYDROCORTISONE ACETATE 25 MG SUPP PR PRN (11:57)
[2018-09-03] MEDS ORDERED: BENZOCAINE 20%/MENTHOL (ORAJEL) GEL 11.9GM TUBE TP PRN (11:57)
[2018-09-03 12:42] VITALS: BP 135/67
--- NOTE | 2018-09-03 13:34 | GCON ---
[f rep st] CONSULTATION DATE OF CONSULTATION: 09/03/2018 REFERRING PHYSICIAN: Obdulio Morris MD REASON FOR CONSULTATION: GI bleed. CHIEF COMPLAINT: Bloody stools. HISTORY OF PRESENT ILLNESS: The patient is a 23-year-old male with history of diabetes mellitus, type 1 who presents to [facility] with complaints of rectal bleeding. The patient states that he had noticed blood on wiping previously and a day prior to admission, he started to have an is significant pain in his rectum. The pain is very sharp and constant. It exacerbated by bowel movements with no significant alleviating factors. He noticed significant red blood in his underweat. According to the ER staff, he had a melanotic bowel movement and a rectal exam was done, which also revealed melena. An anoscope was performed, which was unremarkable. The patient denies significant NSAID use. He also denies any nausea, vomiting, dysphagia, odynophagia, or previous GI bleed. I am being asked by Dr. Obdulio Morris to evaluate the patient in consultation regarding his GI bleed. PAST MEDICAL HISTORY: Diabetes mellitus, 1. PAST SURGICAL HISTORY: Oral surgery. MEDICATIONS: Insulin. ALLERGIES: NKDA. SOCIAL HISTORY: No significant alcohol or tobacco use. FAMILY HISTORY: His father has esophageal cancer. REVIEW OF SYSTEMS: A 12-point comprehensive review of systems was asked. Pertinent positives and negatives per HPI. PHYSICAL EXAM: VITAL SIGNS: Blood pressure 114/68, pulse 65, respirations 16, temperature 36.6. GENERAL: Awake, alert, oriented x3, in no distress. HEENT: Moist mucosa. NECK: No JVD. CARDIOVASCULAR: Regular rate and rhythm. Positive S1, S2. No gallops appreciated. LUNGS: Clear to auscultation bilaterally. No wheezes, rales, or rhonchi. ABDOMEN: Soft, nontender, nondistended with positive bowel sounds. No guarding. No rebound. EXTREMITIES : No clubbing, cyanosis, or edema. NEUROLOGIC: Grossly intact. PSYCH: Normal affect. SKIN: No rash. RECTAL: Deferred, had exam in the ER. BLOOD WORK: WBC 8.46, hemoglobin 13.8, hematocrit 41. INR 1.06. Potassium 4.1 , BUN 18, creatinine 0.9. ASSESSMENT AND PLAN: 1. Bloody stools. He states he had red stools. In the emergency room, they said he had melenic stools. At this time, I recommend to proceed with upper endoscopy, as well as a flexible sigmoidoscopy. Due to his hemodynamic stability, suspect this is more lower problem and due to the rectal pain, suspect this is more likely could be hemorrhoidal versus other? The risks, benefits, and alternatives of the procedure were discussed in great detail with the patient. The risk of infection, bleeding, perforation, sedation were discussed. All questions answered and informed consent was obtained. Thank you very much for this consultation. /[id number]/MODL MTDD
--- NOTE | 2018-09-03 13:44 | PDDCSUM ---
Discharge Summary Discharge Summary: Date of Admission: 09/02/2018 Date of Discharge: 09/03/2018 Consultants: GI Procedures: EGD, flexible sigmoidoscopy Discharge Diagnoses: 1. Hematochezia, likely related to 2. Thrombosed hemorrhoids 3. Suspected eosinophilic esophagitis 4. Endoscopic trauma at GE junction s/p clip 5. Type 1 diabetes on insulin pump Brief Hospital Course: 23yo M with type 1 diabetes presented with rectal bleeding. He reports months of blood on toilet paper but day prior to admission noticed significant bright red blood in toilet bowl. His H/H were normal and he was hemodynamically stable. GI was consulted and upper and lower endoscopies were performed. EGD did not show any significant source of bleeding. The endoscope did brush up against the esophagus causing some mild trauma and a clip was placed with cessation of bleeding. Per Dr Johns, the appearance of his esophagus was consistent with eosinophilic esophagitis. Flex sig showed small thrombosed external and non-thrombosed internal hemorrhoids. This is likely the source of bleeding. The case was discussed with Dr Post of general surgery who recommended conservative treatment at this point. He was discharged with hydrocortisone suppositories/cream and encouraged to use Sitz baths. He will follow up in GI clinic. Medications: Please refer to EMR for complete list. Follow Up Plan: 1. GI clinic appointment in 2-3 weeks Physical Exam: Vitals reviewed, stable. Alert and oriented, rrr, lungs clear, abdomen soft and nt, no rashes, no edema.
== END 2018-09-03 15:01 | disposition home or self-care (01) ==
LOC: F1N 23:22
PROVIDERS: ADMIT Student in an Organized Health Care Education/Training Program; ATTEND Student in an Organized Health Care Education/Training Program
DX: K92.1 Melena (principal); K91.71 Accidental puncture and laceration of a digestive system organ or structure during a digestive system procedure; K64.8 Other hemorrhoids; E10.9 Type 1 diabetes mellitus without complications; Z96.41 Presence of insulin pump (external) (internal); E86.9 Volume depletion, unspecified
CPT/HCPCS: 43235; 45330; 96361; 96374; 96376; 99285; G0378; J2704

== ENCOUNTER 2018-11-15 10:52 | Day surgery (SDC) | payer MEDICAID ==
[2018-11-15] MEDS ORDERED: LR 1,000 ML IV ONE (11:19)
[2018-11-15] MEDS ORDERED: LIDOCAINE 2% 2 ML INJ ONE (12:23)
[2018-11-15] MEDS ORDERED: PROPOFOL/EMULSION 500 MG/50 ML BOTTLE IV ONE ×2 (12:23→12:53)
--- NOTE | 2018-11-15 12:33 | PDANEPAE ---
ANE Past Medical History - Cardiovascular History Hx Hypertension: No Hx Arrhythmias: No Hx Chest Pain: No Hx Coronary Artery / Peripheral Vascular Disease: No Hx CHF / Valvular Disease: No Hx Palpitations: No - Pulmonary History Hx COPD: No Hx Asthma/Reactive Airway Disease: No Hx Recent Upper Respiratory Infection: No Hx Oxygen in Use at Home: No Hx Sleep Apnea: No Sleep Apnea Screening Result - Last Documented: Negative - Neurologic History Hx Cerebrovascular Accident: No Hx Seizures: No Hx Dementia: No - Endocrine History Hx Diabetes: Yes Endocrine History Comment: SINCE AGE 16. Type 1 DM on an insulin pump, well controlled - Renal History Hx Renal Disorders: No - Liver History Hx Hepatic Disorders: No - Neurological & Psychiatric Hx Hx Neurological and Psychiatric Disorders: No - Cancer History Hx Cancer: No - Congenital Disorder History Hx Congenital Disorders: No - GI History Hx Gastrointestinal Disorders: Yes Gastrointestinal History Comment: RECTAL BLEEDING. PREV GI BLEED/EGD 08/2018 - Other Health History Other Health History: MILD DERMATITIS/FACIAL - Chronic Pain History Chronic Pain: No - Surgical History Prior Surgeries: EGD/FLEX SIG 09/03/18 ANE Review of Systems Review of Systems: - Exercise capacity METS (RN): 4 METS ANE Patient History - Allergies Allergies/Adverse Reactions: No Known Allergies Allergy (Verified 09/02/18 20:55) - Home Medications Home Medications: RX: Insulin Pump, Patient Own 1 ea [facility] [place] AD 07/25/16 [Last Taken 11/15/18] - NPO status NPO Since - Liquids (Date): 11/15/18 NPO Since - Liquids (Time): 01:00 NPO Since - Solids (Date): 11/14/18 NPO Since - Solids (Time): 09:00 - Smoking Hx Smoking Status: Never smoked ANE Labs/Vital Signs - Vital Signs Blood Pressure: 136/86 Heart Rate: 57 Respiratory Rate: 16 O2 Sat (%): 94 Height: 172.72 cm Weight: 58.967 kg ANE Physical Exam - Airway Neck exam: FROM Mallampati Score: Class 1 Mouth exam: normal dental/mouth exam - Pulmonary Pulmonary: no respiratory distress, no rales or rhonchi, clear to auscultation - Cardiovascular Cardiovascular: regular rate and rhythym, no murmur, rub, or gallop - ASA Status ASA Status: III ANE Anesthesia Plan Anesthesia Plan: GA with mask Total IV Anesthesia: Yes
[2018-11-15] MEDS ORDERED: ACETAMINOPHEN 500 MG TAB PO PRN (12:34)
[2018-11-15] MEDS ORDERED: PROMETHAZINE HCL 25 MG/ML INJ IVP PRN (12:34)
[2018-11-15] MEDS ORDERED: NS 500 ML IV PRN (12:34)
[2018-11-15] MEDS ORDERED: PHENYLEPHRINE HCL 100 MCG/ML SYR IVP PRN (12:34)
[2018-11-15] MEDS ORDERED: fentaNYL 100 MCG/2 ML INJ IVP PRN (12:34)
[2018-11-15] MEDS ORDERED: LR 500 ML IV PRN (12:34)
[2018-11-15] MEDS ORDERED: ONDANSETRON 4 MG/2 ML VIAL IVP PRN (12:34)
[2018-11-15] MEDS ORDERED: NALOXONE HCL 0.4 MG/ML INJ IVP PRN (12:34)
[2018-11-15] MEDS ORDERED: INDOMETHACIN 50 MG SUPP PR PRN (12:44)
--- NOTE | 2018-11-15 12:44 | PDGENHP ---
History & Physical Chief Complaint: blood in stools, epig pain History of Present Illness: 23 year old male presents for evaluation of epigastric pain/blood in stools Pertinent Past, Social, Family History: PMHx: DMI. PSughx: None Relevant Physical Exam: HEENT: anicteric. CV: RRR +s1s2. lungs: CTAB. Abd: soft, nt, + bs Cardiorespiratory Assessment: ASA 3
[2018-11-15] MEDS ORDERED: NS 500 ML IV SCH (12:45)
--- NOTE | 2018-11-15 14:03 | GIREPORT ---
[facility] Surgical Services - Endoscopy Department Patient Name: Danny Rendon Procedure Date: 11/15/2018 12:02 PM Patient Type: Outpatient Attending MD/ ER Physician: Maynor Johns MD Procedure: Upper GI endoscopy Indications: Epigastric abdominal pain Patient Profile: 23 year old male presents for epigastric abdominal pain. Providers: Maynor Johns MD Medicines: Monitored Anesthesia Care Complications: No immediate complications. Estimated blood loss: Minimal. Description of Procedure: After obtaining informed consent, the endoscope was passed under direct vision. Throughout the procedure, the patient's blood pressure, pulse, and oxygen saturations were monitored continuously. The Endoscope was intro duced through the mouth, and advanced to the second part of duodenum. The [facility] er GI endoscopy was accomplished without difficulty. The patient tolerated th e procedure well. Findings: A subtle mucosal changes including a subtle ringed esophagus were found in the middle third of the esophagus. Biopsies were taken with a cold forc eps for histology. Patchy mildly erythematous mucosa was found in the gastric body and in the gastric antrum. Biopsies were taken with a cold forceps for histology. The examined duodenum was normal. Biopsies for histology were taken wit h a cold forceps for evaluation of celiac disease. Estimated Blood Loss: Estimated blood loss was minimal. Post Op Diagnosis: - Esophageal mucosal changes. Biopsied. - Erythematous mucosa in the gastric body and antrum. Biopsied. - Normal examined duodenum. Biopsied. - Etiology? No cause of symptoms seen. Await biopsy results. Recommendation: - Perform a colonoscopy today. - Await pathology results. - Thank you for allowing me to participate in the care of your patient. Attending Participation: I personally performed the entire procedure. Maynor Johns MD Maynor Johns MD 11/15/2018 2:03:10 PM This report has been signed electronicallyMaynor Johns MD Number of Addenda: 0 Note Initiated On: 11/15/2018 12:02 PM [email or web address]
--- NOTE | 2018-11-15 14:27 | GIREPORT ---
[facility] Surgical Services - Endoscopy Department Patient Name: Danny Rendon Procedure Date: 11/15/2018 12:02 PM Patient Type: Outpatient Attending MD/ ER Physician: Maynor Johns MD Procedure: Colonoscopy Indications: Abdominal pain, Hematochezia Patient Profile: 23 year old male presents for evaluation of hematochezia/abdominal pain . Providers: Maynor Johns MD Medicines: Monitored Anesthesia Care Complications: No immediate complications. Estimated blood loss: Minimal. Description of Procedure: After obtaining informed consent, the scope was passed under direct vis ion. Throughout the procedure, the patient's blood pressure, pulse, and oxyg en saturations were monitored continuously. The Colonoscope with irrigatio n channel was introduced through the anus and advanced to the cecum, identified by appendiceal orifice and ileocecal valve. The colonoscopy was performed without difficulty. The patient tolerated the procedure well. The quality of the bowel preparation was good. The terminal ileum, ileoceca l valve, appendiceal orifice, and rectum were photographed. Findings: The perianal exam findings include non-thrombosed internal hemorrhoids. The entire examined colon appeared normal. The terminal ileum appeared normal. Estimated Blood Loss: Estimated blood loss was minimal. Post Op Diagnosis: - Non-thrombosed internal hemorrhoids found on perianal exam. - The entire examined colon is normal. - The examined portion of the ileum was normal. - No specimens collected. - Etiology? Suspect blood is hemorrhoidal. Will start a trial of an antispasmodic for abdominal pain. Functional? Recommendation: - Discharge patient to home (with escort). - The signs and symptoms of potential delayed complications were discus sed with the patient. - Patient has a contact number available for emergencies. - Return to normal activities tomorrow. - Resume previous diet. - Continue present medications. - Return to GI office in 6 weeks. - Thank you for allowing me to participate in the care of your patient. Attending Participation: I personally performed the entire procedure. Maynor Johns MD Maynor Johns MD 11/15/2018 2:27:29 PM This report has been signed electronicallyMaynor Johns MD Number of Addenda: 0 Note Initiated On: 11/15/2018 12:02 PM Total Procedure Duration Time 0 hours 16 minutes 27 seconds [email or web address]
[2018-11-15 14:32] VITALS: BP 108/63
== END 2018-11-15 14:45 | disposition home or self-care (01) ==
LOC: FSGY 10:52
PROVIDERS: ATTEND Internal Medicine Gastroenterology
DX: K92.1 Melena (principal); R10.13 Epigastric pain; K64.9 Unspecified hemorrhoids; E10.9 Type 1 diabetes mellitus without complications; Z79.4 Long term (current) use of insulin; Z96.41 Presence of insulin pump (external) (internal)
CPT/HCPCS: J2704